=== PATIENT | female | born 1935 | race Caucasian/White ===

== ENCOUNTER 2021-08-06 23:28 | Emergency (ER) | payer MEDICARE, BC ==
[2021-08-07] MEDS ORDERED: Diazepam 5 MG TAB ONE (00:19)
[2021-08-07] MEDS ORDERED: Pramipexole Di-HCl 0.25 MG TAB PO SCH (00:30)
[2021-08-07 02:02] LABS: Bilirubin Neg (Negative); Blood, Urine 250 (Negative); Clarity Bloody (Clear); Glucose, Urine (Dipstick) Normal (Negative); Ketone, Urine 5 mg/dL (Negative); Leukocyte 500 (Negative); Nitrite Negative (Negative); Protein, Urine (Dipstick) 500 mg/dl (Neg-Trace); Urobilinogen Normal mg/dL (Less than 2); pH, Urine 6.5 (5.0-9.0)
[2021-08-07] MEDS ORDERED: Phenazopyridine HCl 97.5 MG TABLET ONE (02:17)
[2021-08-07 02:40] LABS: Bacteria/HPF None Seen HPF (None Seen); RBC/HPF Greater than 50 HPF (0-3); Squamous Epithelial None Seen HPF (0-3)
== END 2021-08-07 02:55 | disposition home or self-care (01) ==
LOC: CSHERS 23:28
DX: G25.81 Restless legs syndrome (principal); N39.0 Urinary tract infection, site not specified; E78.5 Hyperlipidemia, unspecified; E78.00 Pure hypercholesterolemia, unspecified; Z79.899 Other long term (current) drug therapy
CPT/HCPCS: 81003; 81015; 99283

== ENCOUNTER 2022-11-03 09:16 | Emergency (ER) | payer MEDICARE, BC ==
[2022-11-03 10:50] LABS: Hemoglobin 12.8 g/dL (12.0-15.5); Mean Corpuscular HGB CONC 31.8 g/dL (32.0-36.0); Mean Corpuscular Hemoglobin 28.8 pg (27.0-33.0); Mean Corpuscular Volume 90.3 fl (81.6-98.3); Mean Platelet Volume 9.5 fl (7.4-10.4); Platelet Count 224 10x3/uL (150-450); RBC Distribution Width 13.5 % (11.5-14.5); Red Blood Cell (RBC) Count 4.45 10x6/uL (3.90-5.03); White Blood Cell (WBC) Count 14.7 10x3/uL (3.5-10.5)
[2022-11-03 10:51] LABS: MDiff Complete? YES
[2022-11-03 10:57] LABS: ALT (SGPT) 42 U/L (8-55); AST (SGOT) 47 U/L (5-34); Albumin 3.8 g/dL (3.4-4.8); Alkaline Phosphatase 80 U/L (40-110); Anion Gap 14 mmol/L (10-20); BUN (Urea Nitrogen) 21 mg/dL (9.8-20.1); Bilirubin, Total 0.5 mg/dL (0.2-1.2); Calc. Creatinine Clearance 0 mL/min (70-130); Calcium 9.4 mg/dL (7.8-10.44); Carbon Dioxide 25 mmol/L (23-31); Chloride 104 mmol/L (98-107); Estimated GFR 63; Globulin 3.2 g/dL (2.4-3.5); Glucose 117 mg/dL (83-110); Lipase 5 U/L (8-78); Potassium 4.7 mmol/L (3.5-5.1); Sodium 138 mmol/L (136-145)
[2022-11-03 11:30] LABS: Bilirubin Neg (Negative); Blood, Urine 250 (Negative); Clarity Cloudy (Clear); Glucose, Urine (Dipstick) Normal (Negative); Ketone, Urine Negative (Negative); Leukocyte 25 (Negative); Nitrite Negative (Negative); Protein, Urine (Dipstick) 100 mg/dl (Neg-Trace); Urobilinogen Normal mg/dL (Less than 2)
[2022-11-03 11:48] LABS: Bacteria/HPF 2+ HPF (None Seen); Mucous/LPF 1+ LPF (<2+)
[2022-11-03 11:57] LABS: SARS-CoV-2 NAA Rapid Test Not Detected (NotDetected)
[2022-11-03 12:02] LABS: Band 2 % (5-11); Lymphocytes 9 % (21-51); Monocytes 5 % (0-10); Neutrophil 84 % (42-75)
[2022-11-03 12:03] LABS: Platelet Morphology Comment Appears Adequate
[2022-11-03 12:04] LABS: RBC Morphology NORMAL
== END 2022-11-03 13:33 | disposition home or self-care (01) ==
LOC: CSHERS 09:16
DX: N39.0 Urinary tract infection, site not specified (principal); Z20.822 Contact with and (suspected) exposure to COVID-19; E78.5 Hyperlipidemia, unspecified
CPT/HCPCS: 70450; 71045; 80053; 83605; 83690; 84484; 85025; 93005; 99284; U0002; 36415; 81003; 81015

== ENCOUNTER 2024-05-08 08:00 | Outpatient (CLI) | payer MEDICARE, BC | END 2024-05-08 08:01 | disposition home or self-care (01) | LOC: CSHMAMMO 08:00 | PROVIDERS: ATTEND Family Medicine | DX: M85.852 Other specified disorders of bone density and structure, left thigh (principal); M81.0 Age-related osteoporosis without current pathological fracture | CPT/HCPCS: 77080 ==